=== PATIENT | female | born 1960 | race Caucasian/White ===

== ENCOUNTER → 2016-07-13 | Outpatient (CLI) | payer OTHER, BC ==
--- NOTE | 2016-07-17 12:52 | CPEEG ---
[f rep st] ELECTROENCEPHALOGRAM 4-HOUR VIDEO EEG DATE OF STUDY: 07/13/2016 DATE OF INTERPRETATION: 07/17/2016 INTERPRETATION: This 4-hour video EEG recording is normal. There were no potentially epileptogenic abnormalities present in the awake or sleep recordings. During the video EEG monitoring session, the patient had a clinical event characterized by shaking convulsive activity and back arching, lasting approximately 4 minutes. This event did not have an abnormal EEG correlate and was consistent with a nonepileptic spell. REPORT: This 4-hour video EEG contains 10 Hz alpha activity to the posterior head regions. There was no abnormal activation at rest or with photic stimulation. With photic stimulation at 8 Hz, the patient began having a spell characterized by back arching with her neck flexed backward and intermittently to the right with forced eye closure. She then extended and elevated her forearms in a flexed and prone position. She was apparently unresponsive. Then , on Epic 37, the movements became of higher amplitude with 'no-no' head movements and low amplitude arrhythmic shaking of her forearms. The semiology of the spell was consistent with a nonepileptic behavioral spell. The EEG with this event showed normal background rhythms of wakefulness with superimposed myogenic and movement artifact. The event lasted approximately 4.5 minutes. After the event, there is no postictal slowing or changes on the EEG. The patient went on to become drowsy and fall into sustained sleep during the study. There was no abnormal activation during drowsiness, sleep, or during times of arousal. /[id number]/MODL MTDD
== END ==
LOC: FCPNEURO 08:45
PROVIDERS: ATTEND Psychiatry & Neurology Neurology
DX: R25.2 Cramp and spasm (principal); R25.8 Other abnormal involuntary movements